=== PATIENT | female | born 1960 | race Caucasian/White ===

== ENCOUNTER 2017-07-15 13:29 | Emergency (ER) | payer OTHER ==
[~2017-07-15] VITALS: Ht 157.4 cm; Wt 72.6 kg
== END 2017-07-15 16:33 | disposition home or self-care (01) ==
LOC: ED 13:29
DX: S81.812A Laceration without foreign body, left lower leg, initial encounter (principal); W20.8XXA Other cause of strike by thrown, projected or falling object, initial encounter; Y93.89 Activity, other specified; Y92.89 Other specified places as the place of occurrence of the external cause; Y99.8 Other external cause status